=== PATIENT | male | born 1950 | race Hispanic/Latino ===

== ENCOUNTER → 2017-12-22 | Outpatient (CLI) | payer MEDICARE, OTHER | LOC: LAB.O 15:45 | PROVIDERS: ATTEND Nurse Practitioner Family | DX: M79.89 Other specified soft tissue disorders (principal) ==

== ENCOUNTER → 2017-12-27 | Outpatient (CLI) | payer MEDICARE, OTHER ==
--- NOTE | 2017-12-27 14:42 | US ---
EXAM DESCRIPTION: Bilateral lower extremity arterial Doppler ultrasound CLINICAL HISTORY: PAD COMPARISON: None TECHNIQUE: Grayscale and color Doppler sonographic evaluations of major arteries in both lower extremities. FINDINGS: Major arterial segments of both lower extremities are patent. Monophasic flow waveforms in left dorsalis pedis artery. Remaining arterial segments in both lower extremities demonstrate biphasic or triphasic flow waveforms. Peak systolic flow velocities (in cm/sec) as follows: Right lower extremity, Common femoral artery, 110 superficial femoral artery proximal, 161 Superficial femoral artery mid, 147 Superficial femoral artery distal, 80 Popliteal artery, 91 Posterior tibial artery, 61 Peroneal artery, 82 Dorsalis pedis artery, 31 Left lower extremity, Common femoral artery, 98 Superficial femoral artery proximal, 94 Superficial femoral artery mid, 80 Superficial femoral artery distal, 97 Popliteal artery, 101 Posterior tibial artery, 110 Peroneal artery, 105 Dorsalis pedis artery, 80 IMPRESSION: Major arterial segments in both lower extremities are patent, without flow limiting stenosis based on velocity criteria Electronically signed by: Mariusz Mahmood MD 12/27/2017 2:41 PM CLEARING SUPERVISOR
--- NOTE | 2017-12-27 14:45 | US ---
EXAM DESCRIPTION:Venous,Lower Extremity LT CLINICAL HISTORY:LEG SWELLING COMPARISON: None TECHNIQUE: Grayscale and color Doppler sonographic evaluation of lower extremity deep venous structures. FINDINGS: Common femoral, superficial femoral, popliteal, posterior tibial, peroneal veins in left lower extremity are patent with full compressibility. No intraluminal filling defect identified in these deep venous structures. 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
--- NOTE | 2017-12-27 14:46 | US ---
EXAM DESCRIPTION:Venous,Lower Extremity RT CLINICAL HISTORY:LEG SWELLING COMPARISON: None TECHNIQUE: Grayscale and color Doppler sonographic evaluation of lower extremity deep venous structures. FINDINGS: Common femoral, superficial femoral, popliteal, peroneal and posterior tibial veins in right lower extremity are patent with full compressibility. No intraluminal filling defect identified in these deep venous structures. IMPRESSION: No sonographic evidence of deep venous thrombosis (DVT) in right lower extremity Electronically signed by: Mariusz Mahmood MD 12/27/2017 2:45 PM DISTRIBUTION CENTER ASSISTANT
== END ==
LOC: US 10:21
PROVIDERS: ATTEND Nurse Practitioner Family
DX: I82.403 Acute embolism and thrombosis of unspecified deep veins of lower extremity, bilateral (principal); I73.9 Peripheral vascular disease, unspecified; M79.89 Other specified soft tissue disorders

== ENCOUNTER → 2019-01-10 | Outpatient (CLI) | payer MEDICARE, OTHER ==
--- NOTE | 2019-01-10 13:38 | RAD ---
EXAM DESCRIPTION: Chest,2 Views CLINICAL HISTORY: ESSENTIAL HYPERTENSION COMPARISON: None TECHNIQUE: PA/lateral FINDINGS: Heart is large with prominent central pulmonary vascularity. Reversed left shoulder arthroplasty. No pleural effusion or pneumothorax. Lungs are clear with no consolidating infiltrate. Lateral view shows intact sternum and spurring in the mid T-spine. IMPRESSION: Large arm without congestive failure. Electronically signed by: Ezio England MD 01/10/2019 1:35 PM CDT
== END ==
LOC: RESP 10:37
PROVIDERS: ATTEND Nurse Practitioner Family
DX: I10 Essential (primary) hypertension (principal)

== ENCOUNTER → 2019-06-06 | Outpatient (CLI) | payer MEDICARE, OTHER ==
--- NOTE | 2019-06-07 10:48 | US ---
EXAM DESCRIPTION: Testicular: Ultrasound. CLINICAL HISTORY: 69 years Male TESTICULAR PAIN COMPARISON: None. TECHNIQUE: Transcutaneous scanning ; altamirano-scale and Doppler modes. FINDINGS: Dimensions of the right testicle are 4.0 x 2.7 x 2.7 cm, with normal echogenicity and normal color Doppler flow. Epididymal head measures 11.6 x 7.1 x 5.7 mm, with 3.1 mm cyst head. Otherwise normal echogenicity and normal color Doppler flow. No scrotal wall thickening. No Hydrocele. Dimensions of the left testicle are 4.3 x 2.9 x 2.5 cm, with normal echogenicity and normal color Doppler flow. Epididymal head measures 14 x 6.0 x 5.9 mm, with normal echogenicity and normal color Doppler flow. No scrotal wall thickening. No Hydrocele. Fatty tissue can be seen in the superior left inguinal canal. No bowel peristalsis is noted. IMPRESSION: 1. Small cyst in the right epididymal head. Otherwise normal vascularity size and echogenicity of the right epididymis and right testicle. No scrotal wall thickening or hydrocele. 2. Left testicle and left epididymis are unremarkable. No scrotal wall thickening or hydrocele. Fatty inguinal hernia superior to the epididymis. No bowel peristalsis is seen.. Electronically signed by: Fred Lr MD 06/07/2019 10:47 AM CDT
== END ==
LOC: LAB.O 13:51
PROVIDERS: ATTEND Urology
DX: R97.20 Elevated prostate specific antigen [PSA] (principal); N50.3 Cyst of epididymis; K40.90 Unilateral inguinal hernia, without obstruction or gangrene, not specified as recurrent